=== PATIENT | male | born 1935 | race Caucasian/White ===

== ENCOUNTER 2018-11-07 12:35 | Emergency (ER) | payer MEDICARE, BC ==
[~2018-11-07] VITALS: Ht 185.4 cm; Wt 54.1 kg
[2018-11-07 12:40] VITALS: TEMP 97.5
[2018-11-07] MEDS ORDERED: NORVASC 5MG5 MG/TAB PO (12:57)
[2018-11-07] MEDS ORDERED: ZANTAC 150MG T150 MG PO (12:57)
[2018-11-07] MEDS ORDERED: LIBRIUM 10M10 MG/CAP PO (12:57)
[2018-11-07] MEDS ORDERED: PROSVENT (13:02)
[2018-11-07] MEDS ORDERED: EYE DROP TEARS15 ML (13:02)
[2018-11-07 13:48] LABS: BASO # 0.1 (0.0-0.2); BASO % 0.8 % (0.0-2.0); EOS # 0.1 (0.0-0.7); EOS % 1.2 % (0-4.0); GRAN # 3.8 (1.4-6.5); GRAN % 59.5 % (42.2-75.2); HEMATOCRIT 41.1 % (42.0-52.0); LYMPH # 1.9 (1.2-3.4); LYMPH % 30.1 % (20.0-51.0); MEAN CELL VOLUME 98 fl (80.0-100.0); MEAN CORPUSCULAR HEMOGLOBIN 33 pg (27.0-31.0); MEAN CORPUSCULAR HGB CONC 34 g/dl (33.0-37.0); MEAN PLATELET VOLUME 9.6 fl (7.4-10.4); MONO # 0.5 (0.1-0.6); MONO % 8.1 % (1.7-9.3); PLATELET COUNT 235 K/mm3 (130-400); REDCELL DISTRIBUTION WIDTH-CV 14.6 % (11.5-14.5)
[2018-11-07 13:57] LABS: ALANINE AMINOTRANSFERASE < 6 U/L (21-72); ALBUMIN 4.1 gm/dL (3.5-5.0); ALKALINE PHOSPHATASE 117 U/L (50-136); ANION GAP 7 mmol/L (7-16); AST,SGOT 57 U/L (15-37); BILIRUBIN,TOTAL 0.5 mg/dL (0.0-1.0); BLOOD UREA NITROGEN 11 mg/dL (9-20); CALCIUM 9.2 mg/dL (8.4-10.2); CARBON DIOXIDE 27 mmol/L (22-30); CHLORIDE 107 mmol/L (98-107); CREATININE, serum 0.59 (0.66-1.25); GLUCOSE 99 mg/dL (74-106); POTASSIUM 3.9 mmol/L (3.4-5.0); SODIUM 141 mmol/L (137-145); TOTAL PROTEIN 7.4 gm/dL (6.4-8.2)
[2018-11-07 14:09] LABS: TROPONIN-I < 0.012 ng/mL (0.000-0.035)
[2018-11-07] MEDS ORDERED: VENTOLIN0.09 MG IH (16:10)
[2018-11-07] MEDS ORDERED: SPIRIVA RE2.5 MCG/Ac IH (16:10)
[2018-11-07 16:15] VITALS: BP 133/65; PULSE 67
== END 2018-11-07 16:15 | disposition home or self-care (01) ==
LOC: COL.ER 12:35
PROVIDERS: Physician Assistant
DX: J44.9 Chronic obstructive pulmonary disease, unspecified (principal); I10 Essential (primary) hypertension; D67 Hereditary factor IX deficiency; Z98.890 Other specified postprocedural states; Z87.891 Personal history of nicotine dependence
CPT/HCPCS: J7030; Q9967

== ENCOUNTER 2020-12-25 14:15 | Outpatient (RCR) | payer OTHER, MEDICARE, BC ==
[~2020-12-25 14:15] MED LIST: EYE DROP TEARS15 ML; LIBRIUM 10M10 MG/CAP PO; NORVASC 5MG5 MG/TAB PO; PROSVENT OP; SPIRIVA RE2.5 MCG/Ac IH; VENTOLIN0.09 MG IH; ZANTAC 150MG T150 MG PO
[2021-02-07] MEDS ORDERED: NORVASC 5MG5 MG/TAB PO (18:52)
[2021-02-07] MEDS ORDERED: NEURONTIN100 MG/CAP PO (18:53)
[2021-02-07] MEDS ORDERED: 00186-0370-20 IH (18:58)
[2021-02-12] MEDS ORDERED: MONODOX100 PO (13:25)
[2021-02-12] MEDS ORDERED: INCRUSE EL62.5 MCG/A IH (13:26)
[2021-02-12] MEDS ORDERED: DECADRON6 MG PO (13:29)
[2021-02-12] MEDS ORDERED: OMNICEF 300MG300 MG PO (13:31)
[2021-02-12] MEDS ORDERED: PROAIR HFA0.09 MG/AC IH (13:32)
== END 2021-02-21 | disposition home or self-care (01) ==
LOC: WSPT
DX: M62.838 Other muscle spasm (principal)

== ENCOUNTER 2021-02-07 16:15 | Inpatient (IN) | payer OTHER, MEDICARE, BC ==
[~2021-02-07] VITALS: Ht 185.4 cm; Wt 60.0 kg
[2021-02-07 17:02] LABS: BASO % 0.3 % (0.0-2.0); EOS % 0.1 % (0.0-4.0); GRAN # 7.6 K/mm3 (1.4-6.5); HEMATOCRIT 40.5 % (42.0-52.0); HEMOGLOBIN 13.9 g/dl (13.5-18.0); LYMPH # 0.7 K/mm3 (1.2-3.4); LYMPH % 7.4 % (20.0-51.0); MEAN CELL VOLUME 92 fl (80.0-100.0); MEAN CORPUSCULAR HEMOGLOBIN 32 pg (27-31); MEAN CORPUSCULAR HGB CONC 34 g/dl (33.0-37.0); MEAN PLATELET VOLUME 10.7 fl (7.4-10.4); MONO # 0.9 K/mm3 (0.1-0.6); MONO % 9.7 % (1.7-9.3); PLATELET COUNT 321 K/mm3 (130-400); REDCELL DISTRIBUTION WIDTH-CV 14.6 % (11.5-14.5)
[2021-02-07 17:05] LABS: ALBUMIN 2.7 gm/dL (3.4-4.8); CALCIUM 8.2 mg/dL (8.4-10.2); CREATININE, serum 0.72 mg/dL (0.72-1.25); TOTAL PROTEIN 7.2 gm/dL (6.2-8.1)
[2021-02-07 17:11] LABS: TROPONIN-I 0.013 ng/mL (0.00-0.033)
[2021-02-07 18:43] LABS: INR 1.2 (0.8-3.0); PROTHROMBIN TIME 13.8 SECONDS (9.7-12.8)
[2021-02-07] MEDS ORDERED: NORVASC 5MG5 MG/TAB PO (18:52)
[2021-02-07] MEDS ORDERED: NEURONTIN100 MG/CAP PO (18:53)
[2021-02-07 18:55] LABS: C-REACTIVE PROTEIN 28.22 mg/dL (0.00-0.50); MAGNESIUM 2.1 mg/dL (1.6-2.6)
[2021-02-07] MEDS ORDERED: 00186-0370-20 IH (18:58)
[2021-02-07 20:02] VITALS: BP 119/43; PULSE 79; TEMP 98.3
[2021-02-07 23:27] LABS: ARTERIAL BLD GAS O2 SATURATION 97.2 % (92-100); ARTERIAL BLOOD GAS BASE EXCESS -5.7 (-2-2); ARTERIAL BLOOD GAS HCO3 17.2 meq/L (22-26); ARTERIAL BLOOD GAS PCO2 27.3 mmHg (35-45); ARTERIAL BLOOD GAS PO2 87.4 mmHg (80-100); ARTERIAL BLOOD GAS pH 7.42 (7.35-7.45)
[2021-02-08] VITALS (7 sets, daily range): BP systolic 106–125; BP diastolic 48–73; PULSE 64–89; TEMP 97.6–98.1
[2021-02-08 02:06] LABS: COLLECTION METHOD CLEAN CATCH
[2021-02-08 02:20] LABS: MUCOUS Present (NOT PRESENT); PH 5 (5-8); SQUAMOUS EPITHELIAL 0-2 /hpf (0-10); URINE APPEARANCE Hazy (CLEAR/HAZY); URINE BACTERIA Rare (NONE SEEN); URINE BILIRUBIN Negative (NEGATIVE); URINE BLOOD Negative (NEGATIVE); URINE COLOR Yellow (YELLOW); URINE GLUCOSE Negative (NEGATIVE); URINE KETONE 1+ (NEGATIVE); URINE LEUKOCYTE ESTERASE Negative (NEGATIVE); URINE NITRATE Negative (NEGATIVE); URINE PROTEIN(semi-quant) 1+ (NEGATIVE); URINE UROBILINOGEN >=4.0 mg/dL (NEGATIVE)
[2021-02-08 08:00] LABS: BASO % 0.3 % (0.0-2.0); GRAN # 5.8 K/mm3 (1.4-6.5); GRAN % 84.1 % (42.2-75.2); LYMPH # 0.7 K/mm3 (1.2-3.4); LYMPH % 9.7 % (20.0-51.0); MEAN CELL VOLUME 93 fl (80.0-100.0); MEAN CORPUSCULAR HGB CONC 34 g/dl (33.0-37.0); MEAN PLATELET VOLUME 11.4 fl (7.4-10.4); MONO # 0.3 K/mm3 (0.1-0.6); MONO % 4.9 % (1.7-9.3); REDCELL DISTRIBUTION WIDTH-CV 14.9 % (11.5-14.5)
[2021-02-08 08:01] LABS: HEMATOCRIT 30.8 % (42.0-52.0); HEMOGLOBIN 10.4 g/dl (13.5-18.0); MEAN CORPUSCULAR HEMOGLOBIN 32 pg (27-31); PLATELET COUNT 169 K/mm3 (130-400)
[2021-02-08 08:22] LABS: BILIRUBIN,TOTAL 0.4 mg/dL (0.2-1.2); CALCIUM 7.8 mg/dL (8.4-10.2); CREATININE, serum 0.63 mg/dL (0.72-1.25); POTASSIUM 3.4 mmol/L (3.5-4.5)
[2021-02-09 03:35] VITALS: BP 113/62; PULSE 58; TEMP 97.5
[2021-02-09 08:12] LABS: ALBUMIN 2.2 gm/dL (3.4-4.8); BILIRUBIN,TOTAL 0.3 mg/dL (0.2-1.2); C-REACTIVE PROTEIN 13.59 mg/dL (0.00-0.50); CALCIUM 8.3 mg/dL (8.4-10.2); CREATININE, serum 0.7 mg/dL (0.72-1.25); POTASSIUM 3.4 mmol/L (3.5-4.5); TOTAL PROTEIN 6.2 gm/dL (6.2-8.1)
[2021-02-09 08:48] LABS: BASO % 0.2 % (0.0-2.0); GRAN # 10.4 K/mm3 (1.4-6.5); GRAN % 85.9 % (42.2-75.2); HEMOGLOBIN 10.9 g/dl (13.5-18.0); LYMPH # 0.9 K/mm3 (1.2-3.4); LYMPH % 7.2 % (20.0-51.0); MEAN CELL VOLUME 92 fl (80.0-100.0); MEAN CORPUSCULAR HEMOGLOBIN 32 pg (27-31); MEAN CORPUSCULAR HGB CONC 34 g/dl (33.0-37.0); MEAN PLATELET VOLUME 10.2 fl (7.4-10.4); MONO # 0.7 K/mm3 (0.1-0.6); PLATELET COUNT 209 K/mm3 (130-400); RED BLOOD COUNT 3.45 M/mm3 (4.20-5.60); REDCELL DISTRIBUTION WIDTH-CV 14.8 % (11.5-14.5)
[2021-02-09 08:49] LABS: HEMATOCRIT 31.7 % (42.0-52.0)
[2021-02-09 09:19] VITALS: BP 118/79; PULSE 71; TEMP 98.1
[2021-02-09 11:59] VITALS: BP 120/61; PULSE 74; TEMP 97.9
[2021-02-09 16:00] VITALS: BP 114/61; PULSE 75; TEMP 97.7
[2021-02-09 19:57] VITALS: BP 117/86; PULSE 53; TEMP 97.1
[2021-02-10 00:33] VITALS: BP 105/60; PULSE 65; TEMP 97.8
[2021-02-10 04:30] VITALS: BP 111/67; PULSE 70; TEMP 98.7
[2021-02-10 07:09] LABS: BASO % 0.1 % (0.0-2.0); GRAN # 9.9 K/mm3 (1.4-6.5); GRAN % 86.3 % (42.2-75.2); HEMOGLOBIN 10.6 g/dl (13.5-18.0); LYMPH # 0.7 K/mm3 (1.2-3.4); LYMPH % 6.2 % (20.0-51.0); MEAN CELL VOLUME 95 fl (80.0-100.0); MEAN CORPUSCULAR HEMOGLOBIN 32 pg (27-31); MEAN CORPUSCULAR HGB CONC 34 g/dl (33.0-37.0); MEAN PLATELET VOLUME 10.6 fl (7.4-10.4); MONO # 0.7 K/mm3 (0.1-0.6); MONO % 6.4 % (1.7-9.3); PLATELET COUNT 252 K/mm3 (130-400); RED BLOOD COUNT 3.34 M/mm3 (4.20-5.60)
[2021-02-10 07:21] LABS: HEMATOCRIT 31.6 % (42.0-52.0)
[2021-02-10 07:37] LABS: ALBUMIN 2.2 gm/dL (3.4-4.8); BILIRUBIN,TOTAL 0.3 mg/dL (0.2-1.2); C-REACTIVE PROTEIN 7.19 mg/dL (0.00-0.50); CALCIUM 8.1 mg/dL (8.4-10.2); CREATININE, serum 0.62 mg/dL (0.72-1.25); POTASSIUM 4.1 mmol/L (3.5-4.5); TOTAL PROTEIN 5.8 gm/dL (6.2-8.1)
[2021-02-10 09:04] VITALS: BP 126/71; PULSE 66; TEMP 97.6
[2021-02-10 11:11] VITALS: BP 124/62; PULSE 71; TEMP 97.7
[2021-02-10 16:07] VITALS: BP 116/62; PULSE 63; TEMP 97.8
[2021-02-10 20:42] VITALS: BP 99/68; PULSE 67; TEMP 98
[2021-02-11] VITALS (7 sets, daily range): BP systolic 105–134; BP diastolic 60–69; PULSE 52–77; TEMP 97.4–98.7
[2021-02-11 07:29] LABS: HEMOGLOBIN 10.7 g/dl (13.5-18.0); MEAN CELL VOLUME 93 fl (80.0-100.0); MEAN CORPUSCULAR HEMOGLOBIN 31 pg (27-31); MEAN CORPUSCULAR HGB CONC 34 g/dl (33.0-37.0); MEAN PLATELET VOLUME 10.6 fl (7.4-10.4); PLATELET COUNT 239 K/mm3 (130-400); RED BLOOD COUNT 3.42 M/mm3 (4.20-5.60)
[2021-02-11 07:44] LABS: HEMATOCRIT 31.9 % (42.0-52.0)
[2021-02-11 07:50] LABS: ALBUMIN 2.2 gm/dL (3.4-4.8); BILIRUBIN,TOTAL 0.3 mg/dL (0.2-1.2); CALCIUM 8.2 mg/dL (8.4-10.2); CREATININE, serum 0.64 mg/dL (0.72-1.25); TOTAL PROTEIN 5.7 gm/dL (6.2-8.1)
[2021-02-11 09:32] LABS: BAND 12 % (0-10); LYMPHOCYTE 9 % (20.0-51.0); METAMYELOCYTE 1 % (0-0); MYELOCYTE 1 % (0-0); NEUTROPHILS 69 % (42.0-75.2); PLATELET ESTIMATE NORMAL (NORMAL)
[2021-02-12 03:45] VITALS: BP 126/70; PULSE 57; TEMP 97.6
[2021-02-12 06:59] LABS: HEMOGLOBIN 11.2 g/dl (13.5-18.0); MEAN CELL VOLUME 92 fl (80.0-100.0); MEAN CORPUSCULAR HEMOGLOBIN 32 pg (27-31); MEAN CORPUSCULAR HGB CONC 35 g/dl (33.0-37.0); MEAN PLATELET VOLUME 10.7 fl (7.4-10.4); PLATELET COUNT 218 K/mm3 (130-400); RED BLOOD COUNT 3.53 M/mm3 (4.20-5.60); REDCELL DISTRIBUTION WIDTH-CV 14.8 % (11.5-14.5)
[2021-02-12 07:05] LABS: HEMATOCRIT 32.4 % (42.0-52.0)
[2021-02-12 07:22] LABS: ALBUMIN 2.3 gm/dL (3.4-4.8); BILIRUBIN,TOTAL 0.4 mg/dL (0.2-1.2); CALCIUM 8.1 mg/dL (8.4-10.2); CREATININE, serum 0.67 mg/dL (0.72-1.25); POTASSIUM 3.7 mmol/L (3.5-4.5); TOTAL PROTEIN 5.8 gm/dL (6.2-8.1)
[2021-02-12 08:01] LABS: BAND 6 % (0-10); LYMPHOCYTE 14 % (20.0-51.0); NEUTROPHILS 73 % (42.0-75.2); PLATELET ESTIMATE NORMAL (NORMAL)
[2021-02-12 08:46] VITALS: BP 123/65; PULSE 63; TEMP 97.8
[2021-02-12 12:46] VITALS: BP 113/66; PULSE 70; TEMP 97.3
[2021-02-12] MEDS ORDERED: MONODOX100 PO (13:25)
[2021-02-12] MEDS ORDERED: INCRUSE EL62.5 MCG/A IH (13:26)
[2021-02-12] MEDS ORDERED: DECADRON6 MG PO (13:29)
[2021-02-12] MEDS ORDERED: OMNICEF 300MG300 MG PO (13:31)
[2021-02-12] MEDS ORDERED: PROAIR HFA0.09 MG/AC IH (13:32)
== END 2021-02-12 16:11 | disposition home health service (06) | DRG 177 ==
LOC: COL.ER 16:15 → MEDICAL 18:11
PROVIDERS: Emergency Medicine; Internal Medicine; Nurse Practitioner Family; ADMIT Internal Medicine
PROC: XW033E5 Introduction of Remdesivir Anti-infective into Peripheral Vein, Percutaneous Approach, New Technology Group 5 (ICD-10-PCS; principal; 2021-02-07)
DX: U07.1 COVID-19 (principal); J12.82 Pneumonia due to coronavirus disease 2019; J96.01 Acute respiratory failure with hypoxia; D67 Hereditary factor IX deficiency; J44.0 Chronic obstructive pulmonary disease with (acute) lower respiratory infection; E87.2 Acidosis; J44.1 Chronic obstructive pulmonary disease with (acute) exacerbation; I10 Essential (primary) hypertension; G62.9 Polyneuropathy, unspecified; E87.6 Hypokalemia; Z87.891 Personal history of nicotine dependence
CPT/HCPCS: 99222-AI; 99223-AI; 99232-AI; 99233-AI; 99239; J0696; J1100; J7030; J7050; J7120; J8540; Q9967

== ENCOUNTER 2021-03-07 09:15 | Emergency (ER) | payer OTHER, MEDICARE, BC ==
[~2021-03-07] VITALS: Ht 185.4 cm; Wt 50.9 kg
[~2021-03-07 09:15] MED LIST changes: +00186-0370-20 IH; +DECADRON6 MG PO; +INCRUSE EL62.5 MCG/A IH; +MONODOX100 PO; +NEURONTIN100 MG/CAP PO; +OMNICEF 300MG300 MG PO; +PROAIR HFA0.09 MG/AC IH
[2021-03-07 09:44] LABS: BASO # 0.1 K/mm3 (0.0-0.2); BASO % 0.8 % (0.0-2.0); EOS # 0.1 K/mm3 (0.0-0.7); EOS % 1.1 % (0.0-4.0); GRAN # 5.1 K/mm3 (1.4-6.5); GRAN % 69.7 % (42.2-75.2); HEMATOCRIT 37.9 % (42.0-52.0); HEMOGLOBIN 12.4 g/dl (13.5-18.0); LYMPH # 1.4 K/mm3 (1.2-3.4); LYMPH % 18.8 % (20.0-51.0); MEAN CELL VOLUME 98 fl (80.0-100.0); MEAN CORPUSCULAR HEMOGLOBIN 32 pg (27-31); MEAN CORPUSCULAR HGB CONC 33 g/dl (33.0-37.0); MEAN PLATELET VOLUME 9.1 fl (7.4-10.4); MONO # 0.6 K/mm3 (0.1-0.6); MONO % 8.6 % (1.7-9.3); PLATELET COUNT 320 K/mm3 (130-400); RED BLOOD COUNT 3.86 M/mm3 (4.20-5.60); REDCELL DISTRIBUTION WIDTH-CV 17.9 % (11.5-14.5)
[2021-03-07 09:57] LABS: INR 1.1 (0.8-3.0); PROTHROMBIN TIME 12.6 SECONDS (9.7-12.8)
[2021-03-07 09:59] LABS: PARTIAL THROMBOPLASTIN TIME 45.1 SECONDS (26.0-37.0)
[2021-03-07 10:02] LABS: ALBUMIN 2.9 gm/dL (3.4-4.8); BILIRUBIN,TOTAL 0.5 mg/dL (0.2-1.2); C-REACTIVE PROTEIN 0.54 mg/dL (0.00-0.50); CALCIUM 8.2 mg/dL (8.4-10.2); CREATININE, serum 0.74 mg/dL (0.72-1.25); TOTAL PROTEIN 6.3 gm/dL (6.2-8.1)
[2021-03-07 14:41] VITALS: BP 94/69; PULSE 102; TEMP 97.7
[2021-03-07 14:42] LABS: HEMOGLOBIN 11.5 g/dl (13.5-18.0)
[2021-03-07 15:06] VITALS: BP 96/66; PULSE 97; TEMP 97.6
[2021-03-07 15:48] VITALS: BP 94/64; PULSE 91; TEMP 97.4
[2021-03-07 16:47] VITALS: BP 108/68; PULSE 94; TEMP 97.6
[2021-03-07 17:00] VITALS: BP 100/66
[2021-03-07 17:30] VITALS: PULSE 87
== END 2021-03-07 17:50 | disposition short-term general hospital (02) ==
LOC: COL.ER 09:15
PROVIDERS: Emergency Medicine
DX: K92.2 Gastrointestinal hemorrhage, unspecified (principal); D67 Hereditary factor IX deficiency; J44.9 Chronic obstructive pulmonary disease, unspecified
CPT/HCPCS: J7030; Q9967

== ENCOUNTER 2023-02-18 13:30 | Outpatient (RCR) | payer OTHER, MEDICARE, BC | END 2023-02-21 | disposition home or self-care (01) | LOC: WSPT | DX: R53.1 Weakness (principal); R26.89 Other abnormalities of gait and mobility ==

== ENCOUNTER 2023-03-05 13:30 | Outpatient (RCR) | payer OTHER, MEDICARE, BC | END 2023-03-24 | disposition home or self-care (01) | LOC: WSPT | DX: R53.1 Weakness (principal) ==

== ENCOUNTER 2023-10-12 12:21 | Emergency (ER) | payer MEDICARE, BC ==
[~2023-10-12] VITALS: Ht 185.4 cm; Wt 59.1 kg
[2023-10-12 12:28] VITALS: TEMP 97.2
[2023-10-12 13:25] LABS: BASO # 0.1 K/mm3 (0.0-0.2); BASO % 0.6 % (0.0-2.0); EOS % 0.5 % (0.0-4.0); GRAN % 81.1 % (42.2-75.2); HEMOGLOBIN 14.4 g/dl (13.5-18.0); LYMPH # 1.1 K/mm3 (1.2-3.4); LYMPH % 13.1 % (20.0-51.0); MEAN CELL VOLUME 95 fl (80.0-100.0); MEAN CORPUSCULAR HEMOGLOBIN 32 pg (27-31); MEAN CORPUSCULAR HGB CONC 34 g/dl (33.0-37.0); MEAN PLATELET VOLUME 11.5 fl (7.4-10.4); MONO # 0.4 K/mm3 (0.1-0.6); MONO % 4.2 % (1.7-9.3); PLATELET COUNT 239 K/mm3 (130-400); RED BLOOD COUNT 4.51 M/mm3 (4.20-5.60); REDCELL DISTRIBUTION WIDTH-CV 13.7 % (11.5-14.5)
[2023-10-12 13:27] LABS: INR 1.1 (0.8-3.0); PROTHROMBIN TIME 12.2 SECONDS (9.7-12.8)
[2023-10-12 13:40] LABS: ALBUMIN 3.6 g/dL (3.4-4.8); BILIRUBIN,TOTAL 0.5 mg/dL (0.2-1.2); CALCIUM 9.5 mg/dL (8.4-10.2); CREATININE, serum 0.84 mg/dL (0.72-1.25); POTASSIUM 4.2 mEq/L (3.5-4.5); TOTAL PROTEIN 7.3 g/dl (6.2-8.1)
[2023-10-12 14:26] VITALS: BP 158/100; PULSE 94
== END 2023-10-12 14:31 | disposition home or self-care (01) ==
LOC: COL.ER 12:21
PROVIDERS: Nurse Practitioner
DX: K92.1 Melena (principal); Z87.891 Personal history of nicotine dependence

== ENCOUNTER 2023-10-13 18:38 | Emergency (ER) | payer OTHER ==
[~2023-10-13] VITALS: Ht 185.4 cm; Wt 61.4 kg
[2023-10-13 20:12] LABS: BASO # 0.1 K/mm3 (0.0-0.2); BASO % 0.9 % (0.0-2.0); EOS # 0.1 K/mm3 (0.0-0.7); EOS % 0.7 % (0.0-4.0); LYMPH # 1.9 K/mm3 (1.2-3.4); LYMPH % 20.8 % (20.0-51.0); MEAN CELL VOLUME 97 fl (80.0-100.0); MEAN CORPUSCULAR HGB CONC 34 g/dl (33.0-37.0); MEAN PLATELET VOLUME 10.8 fl (7.4-10.4); MONO # 0.8 K/mm3 (0.1-0.6); MONO % 9.3 % (1.7-9.3); PLATELET COUNT 246 K/mm3 (130-400); RED BLOOD COUNT 3.46 M/mm3 (4.20-5.60)
[2023-10-13 20:13] LABS: HEMATOCRIT 33.4 % (42.0-52.0); HEMOGLOBIN 11.2 g/dl (13.5-18.0); MEAN CORPUSCULAR HEMOGLOBIN 32 pg (27-31)
[2023-10-13 20:14] LABS: INR 1.2 (0.8-3.0); PROTHROMBIN TIME 13.2 SECONDS (9.7-12.8)
[2023-10-13 20:16] LABS: PARTIAL THROMBOPLASTIN TIME 40.4 SECONDS (26.0-37.0)
[2023-10-13 20:26] LABS: ALBUMIN 3.4 g/dL (3.4-4.8); BILIRUBIN,TOTAL 0.4 mg/dL (0.2-1.2); CALCIUM 8.6 mg/dL (8.4-10.2); CREATININE, serum 0.99 mg/dL (0.72-1.25); POTASSIUM 3.8 mEq/L (3.5-4.5); TOTAL PROTEIN 6.1 g/dl (6.2-8.1)
[2023-10-13 21:23] VITALS: BP 118/76; PULSE 115; TEMP 98.6
[2023-10-13 21:46] VITALS: BP 117/77; PULSE 112; TEMP 98
[2023-10-13] MEDS ORDERED: Acetaminophen 500 MG TAB PO ONE (22:00)
[2023-10-13 22:45] VITALS: BP 113/89; PULSE 102; TEMP 97.8
[2023-10-13 23:01] VITALS: BP 120/64; PULSE 110; TEMP 97.8
[2023-10-13 23:15] VITALS: BP 119/78; PULSE 109; TEMP 98
[2023-10-14] VITALS: BP 120/59; PULSE 101; TEMP 98.5
[2023-10-14 00:35] VITALS: BP 138/105; PULSE 99; TEMP 98.1
[2023-10-14 00:50] VITALS: BP 117/76; PULSE 87; TEMP 98.1
[2023-10-14 01:05] VITALS: BP 123/82; PULSE 91; TEMP 98.1
[2023-10-14 01:36] VITALS: BP 116/84; PULSE 84
== END 2023-10-14 01:40 | disposition short-term general hospital (02) ==
LOC: COL.ER 18:38
PROVIDERS: Emergency Medicine
DX: K92.1 Melena (principal); D67 Hereditary factor IX deficiency